=== PATIENT | female | born 1950 | race Caucasian/White ===

== ENCOUNTER 2017-05-11 19:13 | Emergency (ER) | payer OTHER ==
[~2017-05-11] VITALS: Ht 160 cm; Wt 78.5 kg
[2017-05-11 19:19] VITALS: Ht 160 cm; Wt 78.5 kg
--- NOTE | 2017-05-11 21:47 | RADRPT ---
PROCEDURE: Right tibia and fibula x-ray CLINICAL INDICATION: Fall 2 weeks ago. TECHNIQUE: AP, lateral views of the tibia and fibula were obtained. COMPARISON: None FINDINGS: There is soft tissue swelling around the circumference of the ankle. The ankle mortise is normal. IMPRESSION: 1. Soft tissue swelling is noted around the circumference of the ankle. 2. No evidence of a fracture involving the tibia or fibula. RPTAT:AAJJ Physician Ramy Date Time Electronically viewed and signed by Physician Ramy on 05/11/2017 21:47 /
--- NOTE | 2017-05-11 21:48 | RADRPT ---
PROCEDURE: XR Right Ankle. CLINICAL INDICATION: 66-year-old female with fall 2 weeks ago. TECHNIQUE: AP, oblique and lateral views of the right ankle were performed. COMPARISON: None. FINDINGS: There is a enthesiophyte at the insertion site of the Achilles tendon to the right os calcaneus. Th ere is a transverse fracture at the proximal end of the right fifth metatarsal bone. The other bony elements are normal. IMPRESSION: 1. There is a nondisplaced fracture to the proximal right fifth metatarsal bone. 2. Enthesopathy of the Achilles tendon. 3. Soft tissue swelling around the circumference of the right ankle. RPTAT:AAJJ Physician Ramy Date Time Electronically viewed and signed by Nickolas Johnston Physician on 05/11/2017 21:48 /
--- NOTE | 2017-05-11 21:49 | RADRPT ---
PROCEDURE: Right XR Foot. CLINICAL INDICATION: Fall 2 weeks ago. TECHNIQUE: AP lateral and oblique views of the right foot was obtained. The images were reviewed on a PACS workstation. COMPARISON: No. FINDINGS: There is a transverse fracture at the base of the right fifth metatarsal bone with soft tissue swell ing of the foot and ankle. The other bony elements are intact. There is an enthesiophyte off the d orsal surface of the right os calcaneus. IMPRESSION: 1. Transverse fracture to the proximal end of the right fifth metatarsal bone. 2. Enthesopathy of the Achilles tendon. 3. Soft tissue swelling of the right foot and ankle. RPTAT:AAJJ Physician Ramy Date Time Electronically viewed and signed by Nickoals Johnston Physician on 05/11/2017 21:49 CAMILA/
[2017-05-11] MEDS ORDERED: IBUP400T22 PO (22:18)
--- NOTE | 2017-05-11 22:30 | ERD ---
ER Documentation Chief Complaint Date/Time DATE: 05/11/17 TIME: 22:21 Chief Complaint missed a step while going downstairs 15 days ago, c/o right foot pain HPI Patient is 66-year-old female presents the emergency department for concerns of right lower leg pain after missing a step 15 days ago. Patient states that her pain persists. Patient also reports persistent swelling. Patient reports taking ibuprofen with some alleviation of pain. Patient does report pain with ambulating. Patient denies any dizziness or presyncopal feelings prior to fall. Patient recalls all events. Patient denies any fevers, chills, nausea, vomiting back pain, neck pain or head injury. Patient denies any chest pain, shortness of breath, LOC. She denies any previous injuries to the affected area. ROS All systems reviewed and are negative except as per history of present illness. Medications Home Meds Active Scripts Ibuprofen* (Motrin*) 400 Mg Tab, 400 MG PO Q6, #30 TAB Prov:ANA CALABRESE PA-C 05/11/17 Allergies Allergies: Coded Allergies: morphine (Unverified Allergy, Severe, ITCHING, 05/11/17) Penicillins (Verified Allergy, Unknown, 05/11/17) PMhx/Soc Medical and Surgical Hx: pt denies Medical Hx History of Surgery: Yes (cholecystectomy 2011) Anesthesia Reaction: No Hx Neurological Disorder: No Hx Respiratory Disorders: No Hx Cardiac Disorders: No Hx Psychiatric Problems: No Hx Miscellaneous Medical Probl: No Hx Alcohol Use: No Hx Substance Use: No Hx Tobacco Use: No FmHx Family History: No diabetes Physical Exam Vitals Vital Signs Date Time Temp Pulse Resp B/P Pulse Ox O2 Delivery O2 Flow Rate FiO2 05/11/17 22:45 64 18 139/82 98 Room Air 05/11/17 19:19 98.0 68 18 119/68 98 Physical Exam GENERAL: Well-developed, well-nourished female. Appears in no acute distress. HEAD: Normocephalic, atraumatic. EYES: Pupils are equally reactive bilaterally. EOMs grossly intact. No conjunctival erythema. ENT: Moist mucous membranes. No uvula deviation. No kissing tonsils. NECK: Supple. No meningismus. Normal range of motion of the neck. LUNG: Clear to auscultation bilaterally. No rhonchi, wheezing, rales or coarse breath sounds. HEART: Regular rate and rhythm. No murmurs, rubs or gallops. BACK: No midline tenderness. EXTREMITIES: Equal pulses bilaterally. No peripheral clubbing, cyanosis or edema. No unilateral leg swelling. NEUROLOGIC: Alert and oriented. Moving all four extremities without any difficulty. Normal speech. Steady gait. SKIN: Normal color. Warm and dry. No rashes or lesions. RIGHT LE: No deformity, erythema or ecchymosis. Significant swelling surrounding the ankle and dorsal foot. Tender to palpation throughout midfoot and lateral foot. Skin intact. Decreased range of motion of the ankle secondary to swelling. Normal range of motion of the knee. Normal range of motion of all toes. Sensation intact to light touch. Neurovascularly intact. ( Able to plantarflex, dorsiflex, kalpana foot, invert foot, raise big toe.) 2+ DP and DT pulses. Procedures/MDM ED COURSE: The patient was stable throughout ED course. I kept the patient and/or family informed of laboratory and diagnostic imaging results throughout the ED course. DIAGNOSTIC IMAGING: Read by radiologist. Patient: SHERLYN PALMER : 1950 Age: 66 Sex: F MR #: [id number] DOS: 05/11/171953 Ordering MD: ANA CALABRESE PA-C Location: [facility] Room/Bed: PROCEDURE: XR Right Ankle. CLINICAL INDICATION: 66-year-old female with fall 2 weeks ago. TECHNIQUE: AP, oblique and lateral views of the right ankle were performed. COMPARISON: None. FINDINGS: There is a enthesiophyte at the insertion site of the Achilles tendon to the right os calcaneus. There is a transverse fracture at the proximal end of the right fifth metatarsal bone. The other bony elements are normal. IMPRESSION: 1. There is a nondisplaced fracture to the proximal right fifth metatarsal bone. 2. Enthesopathy of the Achilles tendon. 3. Soft tissue swelling around the circumference of the right ankle. RPTAT:AAJJ Physician Ramy Date Time Electronically viewed and signed by Nickolas Vickie, Physician on 05/11/2017 21:48 JM/ CC: ANA CALABRESE PA-C Patient: SHERLYN PALMER : 1950 Age: 66 Sex: F MR #: [id number] DOS: 05/11/171953 Ordering MD: ANA CALABRESE PA-C Location: [facility] Room/Bed: PROCEDURE: Right XR Foot. CLINICAL INDICATION: Fall 2 weeks ago. TECHNIQUE: AP lateral and oblique views of the right foot was obtained. The images were reviewed on a PACS workstation. COMPARISON: No. FINDINGS: There is a transverse fracture at the base of the right fifth metatarsal bone with soft tissue swelling of the foot and ankle. The other bony elements are intact. There is an enthesiophyte off the dorsal surface of the right os calcaneus. IMPRESSION: 1. Transverse fracture to the proximal end of the right fifth metatarsal bone. 2. Enthesopathy of the Achilles tendon. 3. Soft tissue swelling of the right foot and ankle. RPTAT:AAJJ Nickolas Johnston Physician Date Time Electronically viewed and signed by Nickolas Johnston Physician on 05/11/2017 21:49 JM/ CC: ANA CALABRESE PA-C Patient: SHERLYN PALMER : 1950 Age: 66 Sex: F MR #: [id number] DOS: 05/11/171953 Ordering MD: ANA CALABRESE PA-C Location: [facility] Room/Bed: PROCEDURE: Right tibia and fibula x-ray CLINICAL INDICATION: Fall 2 weeks ago. TECHNIQUE: AP, lateral views of the tibia and fibula were obtained. COMPARISON: None FINDINGS: There is soft tissue swelling around the circumference of the ankle. The ankle mortise is normal. IMPRESSION: 1. Soft tissue swelling is noted around the circumference of the ankle. 2. No evidence of a fracture involving the tibia or fibula. RPTAT:AAJJ Physician Ramy Date Time Electronically viewed and signed by Nickolas Johnston Physician on 05/11/2017 21:47 JM/ CC: ANA CALABRESE PA-C PROCEDURES: SPLINT APPLICATION: The patient was verbally consented at bedside prior to splint application. Patient was explained the risks, benefits and alternatives to this procedure. The patient was neurovascularly intact prior to and status post application of the splint. The patient tolerated the procedure well with no complications. Splint type: posterior short leg Extremity: right lower leg Indication: 1. Transverse fracture to the proximal end of the right fifth metatarsal bone. 2. Enthesopathy of the Achilles tendon. MEDICATIONS GIVEN: Ibuprofen Patient tolerated medication well with no adverse reactions. Patient reported improvement in pain. MEDICAL DECISION MAKING: This is a 66-year-old female who presents with right ankle pain and foot pain after missing a step while going downstairs 15 days ago. Patient states he presented had persistent swelling and pain.. Vital signs were reviewed. Patient was afebrile. Xray imaging showed a transverse fracture of the proximal end of the right fifth metatarsal bone and enthesopathy of the Achilles tendon. Patient was placed in a posterior short leg splint. Patient was initially given crutches to assist with ambulating. Patient did not wish to use the crutches given that she felt that she would fall using them. technical delivery manager contacted case management in attempts to obtain a walker for the patient. Walker unavailable at this time. Patient will be contacted tomorrow morning by case management department to assist patient with obtaining walker once insurance company approves. Walker will be delivered to patient's house. Patient was able to be discharged via wheelchair and crutches and will be provided with assistance to enter her house by her family. Patient understands the importance of being non-weight bearing to the affected extremity. Given these findings, the patient's presentation is most consistent with right fifth metatarsal fracture and enthesopathy of the Achilles tendon. I have a much lower clinical concern for ankle dislocation, ankle fracture, tibia fracture, fibula fracture, tibial plateau fracture, Maisonneuve fracture, osteomyelitis, septic joint, gout, osteoarthritis, DVT, compartment syndrome. At this time, unable to rule out any tendon and ligament injuries. PRESCRIPTIONS: NSAIDs DISCHARGE: At this time, patient is stable for discharge and outpatient management. RICE therapy and ROM exercises were advised to avoid stiffness. I have instructed the patient to follow-up with his/her primary care physician in 1-2 days. I have discussed with the patient the possibility of needing to see an cheese specialist for further workup and imaging if the pain persists. I have instructed the patient to promptly return to the ER for any new or worsening symptoms including increased pain, swelling, redness, warmth or fever. The patient and/or family expressed understanding of and agreement with this plan. All questions were answered. Home care instructions were provided. Departure Diagnosis: Primary Impression: Metatarsal fracture Encounter type: initial encounter Metatarsal bone: second Fracture type: closed Fracture alignment: nondisplaced Laterality: right Qualified Code: S92.324A - Closed nondisplaced fracture of second metatarsal bone of right foot , initial encounter Condition: Stable Patient Instructions: Finger and Toe Fractures (Broken Finger or Toe) Referrals: [facility], [facility] YOU HAVE RECEIVED A MEDICAL SCREENING EXAM AND THE RESULTS INDICATE THAT YOU DO NOT HAVE A CONDITION THAT REQUIRES URGENT TREATMENT IN THE EMERGENCY DEPARTMENT. FURTHER EVALUATION AND TREATMENT OF YOUR CONDITION CAN WAIT UNTIL YOU ARE SEEN IN YOUR DOCTORS OFFICE WITHIN THE NEXT 1-2 DAYS. IT IS YOUR RESPONSIBILITY TO MAKE AN APPOINTMENT FOR FOLOW-UP CARE. IF YOU HAVE A PRIMARY DOCTOR --you should call your primary doctor and schedule an appointment IF YOU DO NOT HAVE A PRIMARY DOCTOR YOU CAN CALL OUR PHYSICIAN REFERRAL HOTLINE AT IF YOU CAN NOT AFFORD TO SEE A PHYSICIAN YOU CAN CHOSE FROM THE FOLLOWING [facility], [facility] [address] [facility] [address] [facility] [address] [facility] [address] [facility] [address] [facility]. [facility] [address] [facility]. [facility] YOU HAVE RECEIVED A MEDICAL SCREENING EXAM AND THE RESULTS INDICATE THAT YOU DO NOT HAVE A CONDITION THAT REQUIRES URGENT TREATMENT IN THE EMERGENCY DEPARTMENT. FURTHER EVALUATION AND TREATMENT OF YOUR CONDITION CAN WAIT UNTIL YOU ARE SEEN IN YOUR DOCTORS OFFICE WITHIN THE NEXT 1-2 DAYS. IT IS YOUR RESPONSIBILITY TO MAKE AN APPOINTMENT FOR FOLOW-UP CARE. IF YOU HAVE A PRIMARY DOCTOR --you should call your primary doctor and schedule and appointment IF YOU DO NOT HAVE A PRIMARY DOCTOR YOU CAN CALL OUR PHYSICIAN REFERRAL HOTLINE AT . IF YOU CAN NOT AFFORD TO SEE A PHYSICIAN YOU CAN CHOSE FROM THE FOLLOWING [facility] INSTITUTIONS: [facility] [address] [place] [address] [facility] [address] [place] [address] [facility] [address] [place] [address] [facility] Hours: Mon-Fri 9:00 AM - 5:00 PM Additional Instructions: Call your primary care doctor TOMORROW for an appointment during the next 1-2 days.See the doctor sooner or return here if your condition worsens before your appointment time. Follow-up with an cheese specialist. Do not bear any weight to the affected extremity. Use crutches when ambulating. ANA CALABRESE PA-C May 11, 2017 22:29
[2017-05-11 22:45] VITALS: BP 139/82; PULSE 64; RESP 18
== END 2017-05-11 23:00 | disposition home or self-care (01) ==
LOC: FTE 19:13
DX: S92.324A Nondisplaced fracture of second metatarsal bone, right foot, initial encounter for closed fracture (principal); X58.XXXA Exposure to other specified factors, initial encounter; Y92.9 Unspecified place or not applicable
CPT/HCPCS: 73590; 73630